=== PATIENT | female | born 1990 | race Caucasian/White ===

== ENCOUNTER → 2023-06-25 | Outpatient (CLI) | payer OTHER ==
--- NOTE | 2023-06-26 08:37 | US ---
EXAMINATION TYPE: US mass soft tissue chest/back DATE OF EXAM: 06/25/2023 COMPARISON: NONE CLINICAL INDICATION: Female, 33 years old with history of R22.2 LOCALIZED SWELLING, MASS A; Lump righ t shoulder blade upper back x 5 years. TECHNIQUE: Targeted scanning along the patient's right-sided lump. FINDINGS: Bonding Equipment Operator notes: Hypoechoic area 7 x 3 cm approximate measurement. IMPRESSION: Findings suggest a large subcutaneous lipoma measuring at least 7 cm at the patient's palpable site. Correlate to ensure that this is soft and fits the clinical picture. If any enlargement is encountere d or the area is symptomatic, excision could be considered.
== END | disposition home or self-care (01) ==
LOC: RADUSWWP 09:59
PROVIDERS: ATTEND Family Medicine
DX: R22.2 Localized swelling, mass and lump, trunk (principal)